=== PATIENT | male | born 1985 | race Caucasian/White ===

== ENCOUNTER 2022-05-08 01:27 | Emergency (ER) | payer BC ==
[2022-05-08] MEDS ORDERED: Hydrocortisone/Neomycin/Polymyxin B Otic Susp 10 ML Bottle ONE (01:51)
== END 2022-05-08 02:14 | disposition home or self-care (01) ==
LOC: DL.ED 01:27
DX: H60.502 Unspecified acute noninfective otitis externa, left ear (principal); Z88.6 Allergy status to analgesic agent
CPT/HCPCS: 99282; A9270